=== PATIENT | female | born 1985 | race Caucasian/White ===

== ENCOUNTER 2016-12-07 14:43 | Emergency (ER) | payer OTHER ==
[~2016-12-07] VITALS: Ht 160 cm; Wt 54.5 kg
[2016-12-07 14:52] VITALS: BP 130/85; PULSE 105; RESP 16; O2SAT 100
--- NOTE | 2016-12-07 15:04 | ED.REPORT ---
HPI-Abd Pain F Under 40 Date of Service Dec 07, 2016 ED Provider: Nursing Notes Stated Complaint: STOMACH PAIN Chief Complaint: Female Abdominal Pain Allergies: Uncoded Allergies: SSRI (Allergy, Mild, 07/10/14) manic-deppressive reaction No Active Prescriptions or Reported Meds General Time Seen by MD: 15:04 Past Medical History Past Medical History Anxiety Past Surgical History none Smoking History Never Smoker Social History Alcohol Use: "Social" Drug Use: THC Ambulatory Status Independent Physical Exam Initial Vital Signs Vital Signs (First) Date Time Temp Pulse Resp B/P Pulse Ox O2 Delivery O2 Flow Rate FiO2 12/07/16 14:52 37.8 105 16 130/85 100 Room Air Interpretation & Diagnostics Lab Results Interpretation Result Diagram: 12/07/16 1511 Test 12/07/16 15:11 White Blood Count 7.2th/mm3 (3.8-10.1) Red Blood Count 4.53mil/mm3 (3.90-5.20) Hemoglobin 13.8g/dL (12.0-15.6) Hematocrit 40.3% (35.0-46.0) Mean Corpuscular Volume 89.0fL (81-100) Mean Corpuscular Hemoglobin 30.5pg (27.0-35.0) Mean Corpuscular Hemoglobin Concent 34.2% (32.0-37.0) Red Cell Distribution Width 12.6% (12.3-15.4) Platelet Count 336bil/L (150-400) Neutrophils (%) (Auto) 85.3% (40-74) Lymphocytes (%) (Auto) 9.7% (14-46) Monocytes (%) (Auto) 4.8% (4-12) Eosinophils (%) (Auto) 0% (0-5) Basophils (%) (Auto) 0.1% (0-3) Discharge & Departure Referrals: NOPMANDEEP (PCP) Malcolm Kelly DO Dec 07, 2016 15:04
[2016-12-07 15:24] LABS: BASOPHILS % (AUTO) 0.1 % (0-3); EOSINOPHILS % (AUTO) 0 % (0-5); MONOCYTES % (AUTO) 4.8 % (4-12); Mean Corpuscular Hemoglobin 30.5 pg (27.0-35.0); NEUTROPHILS % (AUTO) 85.3 % (40-74); Platelet Count 336 bil/L (150-400)
[2016-12-07] MEDS ORDERED: LidocaineVisc 2%:Antacid 1:1 10 mL Syringe PO ONE (15:30)
[2016-12-07 15:49] LABS: Magnesium 1.9 mg/dL (1.6-2.6)
--- NOTE | 2016-12-07 15:54 | ED.REPORT ---
HPI-Abd Pain F Under 40 Date of Service Dec 07, 2016 ED Provider: Malcolm Kelly DO Mrs. Gross is a otherwise healthy 31-year-old female who presents to the ED with severe abdominal pain. Pain started about 3 days ago. He describes it as a sharp burning pain localized to her upper abdomen and epigastric region. The pain has intensified in nature but has not radiated anywhere. She notes that she feels that her abdomen is more distended than usual. She rates her pain a 10 out of 10. Patient last bowel movement was 3 days ago. She has tried Tylenol and Vicodin for the pain but that has only made it worse. Pain is worse with eating or drinking. Associated symptoms of vomiting. She feels like her heart is beating very fast and she is short of breath due to the pain. She also notes being very diaphoretic. She denies fever, diarrhea, dysuria. Patient is currently not on control but denies being . Nursing Notes Stated Complaint: STOMACH PAIN Chief Complaint: Female Abdominal Pain Allergies: Uncoded Allergies: SSRI (Allergy, Mild, 07/10/14) manic-deppressive reaction Scheduled Famotidine (Famotidine) 40 Mg Tablet 40 MG PO BID Hyoscyamine ODT (Hyoscyamine ODT) 0.125 Mg Tab.rapdis 0.125 MG PO Q6H Magnesium Citrate (Magnesium Citrate) 100 Mg Tablet 100 MG PO ONCE Ondansetron ODT (Ondansetron ODT) 8 Mg Tab.rapdis 8 MG PO Q6H Sucralfate (Sucralfate) 1 Gm Tablet 1 GM PO QID Scheduled PRN Promethazine Supp (Promethazine Supp) 25 Mg Supp 25 MG RECTAL Q8H PRN PRN For Nausea/Vomiting General Time Seen by MD: 15:50 Chief Complaint Abdominal pain Hx Obtained From: Patient, Spouse Arrived By: Walk-in Sudden in Onset?: Yes Onset Occurred: 3 days ago Context of Onset: Eating Symptom Duration: Constant Progression since Onset: Gradually worsening Location: : Abdomen upper: Epigastric Quality: Burning, Sharp Radiation: : Does not radiate Severity: Current: Pain level 10 out of 10 Severity: Maximum: Pain level 10 out of 10 Associated with: Reports: Anorexia, Chills, Nausea, Shortness of breath Pertinent Negative: Pt denies other symptoms Pertinent Negative: Relieved by nothing Past Medical History Past Medical History Anxiety Past Surgical History none Smoking History Never Smoker Social History Alcohol Use: "Social" Drug Use: THC Ambulatory Status Independent Review of Systems Basic Review of Systems Eyes: Vision NL, No discharge ENT: Hearing NL, No pain, No nasal congestion, No pharyngeal pain Hematologic: No bleeding, No bruising Endocrine: No cold intolerance, No heat intolerance, No weight gain, No weight loss Skin: No bruising, No rash, No itch Allergy / Immune: No allergy Neurologic: NL mental status, No weakness, No numbness Psychiatric: Normal thought content Constitutional: Reports: Chills, Denies: Fever Cardiovascular: Denies: Chest pain GI: Reports: Abdominal pain, Nausea, Vomiting, Denies: Diarrhea Female: Denies: Dysuria, Complete sys rev & neg: except as marked. Physical Exam Initial Vital Signs Vital Signs (First) Date Time Temp Pulse Resp B/P Pulse Ox O2 Delivery O2 Flow Rate FiO2 12/07/16 14:52 37.8 105 16 130/85 100 Room Air ENT: Mucous membranes moist, Conjunctiva normal, No scleral icterus Neck: Supple, Non-tender, Full range of motion Lymphatic: No lymphadenopathy Extremities: Vascular intact, Neuro intact, No swelling, No tenderness Skin: Warm, No cyanosis Neurologic: Alert, Oriented, Nonfocal Psychiatric: Mood/affect normal, Behavior normal, Normal thought content General/Constitutional: Awake, Alert Distress / Hydration: Positive: Distress moderate Respiratory / Chest: Breath sounds NL, Breath sounds = bilat, No respiratory distress, No rales, No rhonchi, No wheezing Cardiovascular: Regular rhythm, Heart sounds NL, No murmurs, Peripheral circulation NL Heart Rate / Rhythm: Positive: Tachycardia Abdomen: Soft, No guarding, BS normoactive, No palpable mass, No pulsatile mass Tenderness/Guarding/Rebound: Positive: Tender diffuse Interpretation & Diagnostics Lab Results Interpretation Result Diagram: 12/07/16 1511 12/07/16 1511 Test 12/07/16 15:11 White Blood Count 7.2th/mm3 (3.8-10.1) Red Blood Count 4.53mil/mm3 (3.90-5.20) Hemoglobin 13.8g/dL (12.0-15.6) Hematocrit 40.3% (35.0-46.0) Mean Corpuscular Volume 89.0fL (81-100) Mean Corpuscular Hemoglobin 30.5pg (27.0-35.0) Mean Corpuscular Hemoglobin Concent 34.2% (32.0-37.0) Red Cell Distribution Width 12.6% (12.3-15.4) Platelet Count 336bil/L (150-400) Neutrophils (%) (Auto) 85.3% (40-74) Lymphocytes (%) (Auto) 9.7% (14-46) Monocytes (%) (Auto) 4.8% (4-12) Eosinophils (%) (Auto) 0% (0-5) Basophils (%) (Auto) 0.1% (0-3) Sodium Level 138mEq/L (134-144) Potassium Level 3.6mEq/L (3.5-5.2) Chloride Level 99mEq/L (97-108) Carbon Dioxide Level 23mmol/L (18-29) Blood Urea Nitrogen 5mg/dL (6-20) Creatinine 0.64mg/dL (0.57-1.00) Estimat Glomerular Filtration Rate 154mL/min (>59) Glucose Level 116mg/dL (60-99) Calcium Level 9.8mg/dL (8.5-10.1) Magnesium Level 1.9mg/dL (1.6-2.6) Total Bilirubin 0.3mg/dL (0.0-1.2) Aspartate Amino Transf (AST/SGOT) 14U/L (0-50) Alanine Aminotransferase (ALT/SGPT) 15U/L (0-32) Alkaline Phosphatase 68U/L (25-150) Total Protein 8.4g/dL (6.4-8.4) Albumin 4.8g/dL (3.4-5.0) Lipase 29U/L (13-60) Hold Boyd Top Tube Received (Received) Acetaminophen Level < 15.0ug/mL Rx (10-25) CT Abd / Pelvis Interpretation Impression 1. Moderate stool, consistent with constipation. No obstruction. 2. Mild hepatomegaly with steatosis Re-Eval/Medical Decision Med Decision/Clinical Course Elisa is a 31-year-old female who presents to the ED with severe abdominal pain. Physical exam she is diaphoretic, warm to the touch, and tachycardic. Temperature at that time was 37.8 Celsius. Patient still has her appendix. I ordered a CT scan of her abdomen and pelvis because labs alone cannot confirm the absence of appendicitis. CT scan and confirmed that patient does not have an obstruction, perforation, or appendicitis. Discharge & Departure Primary Impression: Abdominal pain Abdominal location: epigastric Qualified Code: R10.13 - Epigastric pain Additional Impression: Constipation Constipation type: unspecified constipation type Qualified Code: K59.00 - Constipation, unspecified Disposition: Home Discharge Condition All VS Reviewed: Yes Condition: Stable Patient Instructions: Acute Abdominal Pain (ED), Constipation (ED) Additional Instructions: We did a thorough workup of your abdominal pain today. With the CT scan of your abdomen and pelvis, we are certain that your pain is not due to an obstruction, perforation, diverticulitis, or appendicitis. CT scans cannot show gastritis or ulcers. For those reasons I will refer you to boning room worker. I will also start you on The CT scan does show that you're constipated. I am prescribing you Mg citrate. This will help you pass stool. Please follow-up with your primary care provider. Please return to the ED if you experience any symptoms of vomiting blood or coffee grounds, blood in the stool, her abdomen becomes hard and distended, fevers and chills uncontrolled with Tylenol. Referrals: Joyce Matute (PCP) Armando Ridley MD Attending Statment I saw and evaluated this pt with Dr Donald and agree with her documentation Pinky Donald DO Dec 07, 2016 15:54 Malcolm Kelly DO Dec 10, 2016 21:14
[2016-12-07] MEDS ORDERED: HYDROmorphone 0.5 mg/0.5 mL iSecure Syringe IVPUSH ONE (16:10)
[2016-12-07] MEDS ORDERED: Iohexol 300 mg/mL 30 mL Inj PO ONE (16:40)
[2016-12-07] MEDS ORDERED: HYDROmorphone 1 mg/mL Inj IVPUSH ONE ×2 (17:10→18:40)
[2016-12-07] MEDS ORDERED: Ondansetron 2 mg/mL 2 mL Inj IVPUSH ONE (17:10)
[2016-12-07 18:42] VITALS: BP 133/90; PULSE 103; RESP 16; O2SAT 100
--- NOTE | 2016-12-07 19:19 | DRSVH ---
PROCEDURE: CT ABDOMEN AND PELVIS WITH CONTRAST ([id number]) INDICATIONS: abdominal pain TECHNIQUE: After the administration of oral and intravenous contrast, 5 mm thick sections acquired from the diap hragms to the symphysis. 5 mm thick coronal and sagittal reformats were performed. For radiation do se reduction, the following was used: automated exposure control, adjustment of mA and/or kV accordi ng to patient size. COMPARISON: None. FINDINGS: Image quality: Excellent. ABDOMEN: Lung bases: Lung bases are clear. Heart size is normal. Solid organs: Liver is mildly enlarged with steatosis. normal in size and enhancement. Gallbladder is unremarkable. Biliary system is non-dilated. Pancreas enhances normally. No adrenal nodules. K idneys are normal in size and enhancement, without hydronephrosis. Peritoneum and bowel: Stomach, small bowel, and colon loops are normal in caliber and wall thickness . No free fluid or air. Moderate scattered stool without obstruction. Nodes and vessels: No retroperitoneal or mesenteric adenopathy. Aorta and inferior vena cava are no rmal in caliber. Miscellaneous: No ventral hernias. PELVIS: Genitourinary: Bladder wall thickness is normal. Miscellaneous: No inguinal hernias or adenopathy. Bones: No suspicious bony lesions. No vertebral body compression fractures. IMPRESSION: 1. Moderate stool, consistent with constipation. No obstruction. 2. Mild hepatomegaly with steatosis. Dictated by: Mita Ramírez M.D. on 12/07/2016 at 19:15 Approved by: Mita Ramírez M.D. on 12/07/2016 at 19:17
[2016-12-07] MEDS ORDERED: MAGN100T6 PO (19:39)
[2016-12-07] MEDS ORDERED: _oxyCODONE/APAP 5-325 mg Tablet PO PRN (19:40)
[2016-12-07] MEDS ORDERED: _Ondansetron ODT 4 mg Tablet PO PRN (19:40)
[2016-12-07] MEDS ORDERED: SUCR1TAB PO (19:45)
[2016-12-07 20:39] VITALS: BP 123/74; PULSE 102; RESP 16; O2SAT 100
[2016-12-08] MEDS ORDERED: ONDA8TAB10 PO (10:17)
[2016-12-08] MEDS ORDERED: PROM25SU47 RECTAL (10:17)
[2016-12-08] MEDS ORDERED: FAMO40TA6 PO (10:18)
[2016-12-08] MEDS ORDERED: HYOS-8 PO (10:32)
== END 2016-12-07 20:41 | disposition home or self-care (01) ==
LOC: SED 14:43
DX: R10.13 Epigastric pain (principal); K59.00 Constipation, unspecified; R11.10 Vomiting, unspecified; F41.9 Anxiety disorder, unspecified
CPT/HCPCS: 36415; 74177; 80053; 83690; 83735; 85025; 96374; 96375; 96376; 99285; G0480; J1170; J2060; J2405; Q9967

== ENCOUNTER 2016-12-08 06:29 | Emergency (ER) | payer OTHER ==
[~2016-12-08] VITALS: Ht 160 cm; Wt 54.5 kg
[~2016-12-08 06:29] MED LIST: MAGN100T6 PO; SUCR1TAB PO
[2016-12-08 06:34] VITALS: BP 141/94; PULSE 120; RESP 22; O2SAT 100
--- NOTE | 2016-12-08 06:56 | ED.REPORT ---
HPI-Abd Pain F Under 40 Date of Service Dec 08, 2016 ED Provider: Michaela Samano MD Patient is a 31 year old female who presents to the ED complaining of worsening upper abdominal pain onset 2 days ago. She describes the pain as burning without radiation. Associated symptoms include gradually worsening nausea onset 4 days ago with vomiting over the last 2 days and chills. She was seen last night in the department and a CT scan revealed she is constipated. She was given Mag Citrate, nausea medication, and percocet. She reports feeling slightly better upon discharge but has been unable to keep down fluids or her medications since. She denies fevers, diarrhea, or any other symptoms. Pt reports taking pepto bismol and imodium yesterday. Nursing Notes Stated Complaint: ABDOMINAL PAIN Chief Complaint: Female Abdominal Pain Nursing Notes Reviewed: Yes Allergies: Uncoded Allergies: SSRI (Allergy, Mild, 07/10/14) manic-deppressive reaction Scheduled Famotidine (Famotidine) 40 Mg Tablet 40 MG PO BID Hyoscyamine ODT (Hyoscyamine ODT) 0.125 Mg Tab.rapdis 0.125 MG PO Q6H Magnesium Citrate (Magnesium Citrate) 100 Mg Tablet 100 MG PO ONCE Ondansetron ODT (Ondansetron ODT) 8 Mg Tab.rapdis 8 MG PO Q6H Sucralfate (Sucralfate) 1 Gm Tablet 1 GM PO QID Scheduled PRN Promethazine Supp (Promethazine Supp) 25 Mg Supp 25 MG RECTAL Q8H PRN PRN For Nausea/Vomiting General Time Seen by MD: 06:56 Chief Complaint Abdominal pain Hx Obtained From: Patient, Spouse Arrived By: Walk-in Sudden in Onset?: No Onset Occurred: 2 days ago Symptom Duration: Since onset Progression since Onset: Gradually worsening Location: : Abdomen upper Quality: Burning, Painful Radiation: : Does not radiate Severity: Current: Severe Severity: Maximum: Severe Associated with: Reports: Chills, Nausea, Vomiting Pertinent Negative: Pt denies other symptoms Recent Healthcare: Recent doctor visit Similar Sx Previous: Yes Past Medical History Past Medical History Anxiety gastroenteritis Past Surgical History none Smoking History Never Smoker Social History Alcohol Use: "Social" Drug Use: THC Ambulatory Status Independent Review of Systems Constitutional: Reports: Chills, Denies: Fever GI: Reports: Abdominal pain, Nausea, Vomiting, Denies: Diarrhea Complete sys rev & neg: except as marked. Physical Exam Initial Vital Signs Vital Signs (First) Date Time Temp Pulse Resp B/P Pulse Ox O2 Delivery O2 Flow Rate FiO2 12/08/16 06:34 37.2 120 22 141/94 100 Room Air Initial VS: Reviewed, Vital signs abnormal Head / Eyes: Atraumatic, Normocephalic Neck: Full range of motion Skin: Warm, Dry Neurologic: Alert, Oriented, Nonfocal General/Constitutional: Awake, Alert Behavior: Positive: Anxious Respiratory / Chest: Atraumatic, Breath sounds NL, Breath sounds = bilat, No respiratory distress Cardiovascular: Regular rhythm, Heart sounds NL Mildly tachycardic Abdomen: Soft Mild epigastric discomfort intermittent voluntary guarding Back: Atraumatic Interpretation & Diagnostics Lab Results Interpretation Result Diagram: 12/08/16 0741 Test 12/08/16 07:41 White Blood Count 5.6th/mm3 (3.8-10.1) Red Blood Count 4.48mil/mm3 (3.90-5.20) Hemoglobin 13.4g/dL (12.0-15.6) Hematocrit 40.2% (35.0-46.0) Mean Corpuscular Volume 89.7fL (81-100) Mean Corpuscular Hemoglobin 29.9pg (27.0-35.0) Mean Corpuscular Hemoglobin Concent 33.3% (32.0-37.0) Red Cell Distribution Width 12.8% (12.3-15.4) Platelet Count 326bil/L (150-400) Neutrophils (%) (Auto) 79.6% (40-74) Lymphocytes (%) (Auto) 15.0% (14-46) Monocytes (%) (Auto) 5.0% (4-12) Eosinophils (%) (Auto) 0% (0-5) Basophils (%) (Auto) 0.4% (0-3) Hold Boyd Top Tube Received (Received) X-Ray Abdominal Interpretation IMPRESSION: No acute abnormality. No bowel obstruction. Dictated by: Elieser Ray M.D. on 12/08/2016 at 9:11 Approved by: Elieser Ray M.D. on 12/08/2016 at 9:15 Study: 2 view Interpretation / Wet Read by: Interpret - Radiologist Re-Eval/Medical Decision Med Decision/Clinical Course The patient was seen last night for similar symptoms. She says she is in 10 out of 10 pain, I have no doubt she does have discomfort however that she has been laying comfortably on the bed. I repeated her CBC which is improved over yesterday. Her acute abdominal series is unremarkable. The patient had a couple episodes of diarrhea here which given her extreme nausea her symptoms are most consistent with gastroenteritis. Partial list of differential diagnoses considered pancreatitis, cholecystitis, bowel obstruction, peptic ulcer disease , and gastroenteritis. The patient was initially tachycardic which improved with IV fluids. There is not appear to be an acute surgical process at this time. Re-Evaluation/Progress #1: Time of Eval: 09:47 )( Re-Eval Abdomen: Soft Re-Evaluation/Progress Note: Rechecked pt who reports having diarrhea twice while here. Pt requests more pain medication. Discussed plan for additional medication and possible plan for discharge. Patient understands and agrees with plan. All questions addressed at this time. Re-Evaluation/Progress #2: Time of Eval: 10:35 )( Re-Eval Abdomen: Soft Re-Evaluation/Progress Note: Discussed xray results again and plan for discharge with f/u. Pt still requesting pain medication. Patient understands and agrees with plan. All questions addressed at this time. Re-Evaluation/Progress #3: Time of Eval: 11:10 )( Re-Eval Abdomen: Soft Re-Evaluation/Progress Note: Pt still requesting narcotics and states she is in 10/10 pain. Pt does not appear to be in any obvious distress and is speaking calmly. Counseled Regarding: Diagnosis, Lab results, Need for follow-up, When/why to return to ED Discharge & Departure Primary Impression: Gastroenteritis Disposition: Home Discharge Condition All VS Reviewed: Yes Condition: Stable Patient Instructions: Gastroenteritis (ED) Additional Instructions: Thank you for entrusting us with your care. Your X-ray and examination are reassuring. We did not find a dangerous cause for your symptoms at this time. You do not have an obstruction, perforation, pancreatitis, or any other identifiable dangerous conditions. Take frequent, small sips of fluids to stay hydrated. Eat a bland diet and progress as tolerated. Use the nausea medication as needed. If you cannot keep down the oral form, use a suppository. Follow up with your primary doctor. Call this morning to schedule a follow up appointment within the next 1-2 days. Inform them of your recent visits. Discuss the possibility of seeing a GI specialist with your doctor. Return to the emergency department if you experience high fever, bloody vomit or stools, or any other new or concerning symptoms. Referrals: Joyce Matute (PCP) Christiana Attestation Portions of this note were transcribed by Marsha Arzola. I, Dr. Samano personally performed the history, physical exam and medical decision-making; I reviewed and confirmed the accuracy of the information in the transcribed note. Signed by: Christiana Colindres, 12/08/16 copies to: Joyce Matute Jena M MD Dec 08, 2016 06:56 MARSHA ARZOLA Dec 08, 2016 07:05
[2016-12-08] MEDS ORDERED: 0.9% Sodium Chloride 1,000 ML IV ONE (07:10)
[2016-12-08] MEDS ORDERED: Sucralfate 100 mg/mL 10 mL Suspension PO ONE (07:10)
[2016-12-08] MEDS ORDERED: Ondansetron 2 mg/mL 2 mL Inj IVPUSH ONE (07:10)
[2016-12-08] MEDS ORDERED: Famotidine Inj 20 MG in IV Premix 1 EACH IV ONE (07:10)
[2016-12-08] MEDS ORDERED: HYDROmorphone 0.5 mg/0.5 mL iSecure Syringe IVPUSH ONE ×2 (07:10→09:15)
[2016-12-08 07:54] LABS: BASOPHILS % (AUTO) 0.4 % (0-3); EOSINOPHILS % (AUTO) 0 % (0-5); Mean Corpuscular Hemoglobin 29.9 pg (27.0-35.0); Mean Corpuscular Volume 89.7 fL (81-100); NEUTROPHILS % (AUTO) 79.6 % (40-74); Platelet Count 326 bil/L (150-400)
[2016-12-08] MEDS ORDERED: Promethazine Inj 12.5 MG in Dextrose 5%-Pha MIX 50 ML IV ONE (09:15)
--- NOTE | 2016-12-08 09:16 | DRSVH ---
PROCEDURE: X-RAY ACUTE ABDOMINAL SERIES ([id number]) INDICATIONS: constipation TECHNIQUE: One view chest and two views of the abdomen were acquired. COMPARISON: None. FINDINGS: Surgical changes and devices: None. Chest: Lungs are clear. Heart size is normal. No pleural effusions. No pneumoperitoneum. Abdomen: Bowel gas pattern is nonobstructive. There is oral contrast material throughout the colon a nd rectum. No suspicious calcifications. Visualized solid organ contours appear normal. Bones: No suspicious bony lesions. IMPRESSION: No acute abnormality. No bowel obstruction. Dictated by: Elieser Ray M.D. on 12/08/2016 at 9:11 Approved by: Elieser Ray M.D. on 12/08/2016 at 9:15
[2016-12-08] MEDS ORDERED: Promethazine Inj 12.5 MG in 0.9% Sodium Chloride 50 ML IV ONE (09:35)
[2016-12-08] MEDS ORDERED: Promethazine Inj 12.5 MG in 0.9% Sodium Chloride 50 ML IV PRN (09:35)
[2016-12-08] MEDS ORDERED: 0.9% Sodium Chloride 500 ML IV ONE (09:55)
[2016-12-08] MEDS ORDERED: PROM25SU47 RECTAL (10:17)
[2016-12-08] MEDS ORDERED: ONDA8TAB10 PO (10:17)
[2016-12-08] MEDS ORDERED: FAMO40TA6 PO (10:18)
[2016-12-08 10:32] VITALS: BP 130/90; PULSE 93; RESP 12; O2SAT 100
[2016-12-08] MEDS ORDERED: HYOS-8 PO (10:32)
== END 2016-12-08 11:16 | disposition home or self-care (01) ==
LOC: SED 06:29
DX: K52.9 Noninfective gastroenteritis and colitis, unspecified (principal); F41.9 Anxiety disorder, unspecified; Z88.8 Allergy status to other drugs, medicaments and biological substances
CPT/HCPCS: 36415; 74022; 85025; 96361; 96374; 96375; 96376; 99285; J1170; J2060; J2405; J2550; J3490; J7030; J7040